=== PATIENT | male | born 1975 | race African-American/Black ===

== ENCOUNTER 2020-09-02 17:34 | Inpatient (IN) ==
[2020-09-02] MEDS ORDERED: SODIUM CHLORIDE 0.9% 1,000 ML IV STA (19:41)
[2020-09-02] MEDS ORDERED: ACETAMINOPHEN 500 MG TABLET PO STA (19:41)
[2020-09-02 20:20] LABS: Basophils % 0.5 % (0.0-0.8); Hematocrit 44.8 VOL% (42.0-52.0); Hemoglobin 14.7 GM/DL (14.0-18.0); Immature Granulocytes % 0.5 %; Immature Granulocytes Absolute 0.03 #; Lymphocytes # 0.8 10*3/uL (1.4-4.0); Lymphocytes % 14.7 % (21.2-54.2); Mean Corpuscular HGB Conc 32.8 GM/DL (32-36); Mean Platelet Volume 12.6 FL (9.6-12.0); Monocytes % 3.9 % (1.7-12.7); Neutrophils % 80.4 % (38.7-73.9); Platelet Count 117 T/CUMM (130-400); Red Blood Count 4.87 MC/CUMM (3.8-5.5); Red Cell Distribution Width 12.4 % (9.3-17.3); White Blood Count 5.6 T/CUMM (4-12)
[2020-09-02 20:38] LABS: Bilirubin,Total 0.5 MG/DL (0.2-1.0); Calcium 8.6 MG/DL (8.5-10.1); Ferritin 273.7 ng/ml (26-388); Osmolality,Calculated 261.7 MOS/KG (273-304); Total Protein 8.1 G/DL (6.4-8.3)
[2020-09-02 20:44] LABS: Hypochromasia 2+; Platelet Estimate Increased
[2020-09-02] MEDS ORDERED: DEXTROSE 50% 25 GM/50 ML VIAL IV PRN (21:27)
[2020-09-02] MEDS ORDERED: hydrALAZINE 20 MG/1 ML VIAL IV PRN (21:27)
[2020-09-02] MEDS ORDERED: SIMETHICONE CHEW 125 MG TABLET PO PRN (21:27)
[2020-09-02] MEDS ORDERED: ZALEPLON 5 MG CAPSULE PO PRN (21:27)
[2020-09-02] MEDS ORDERED: GLUCAGON 1 MG VIAL IM PRN (21:27)
[2020-09-02] MEDS ORDERED: diphenhydrAMINE CAP 25 MG CAPSULE PO PRN (21:27)
[2020-09-02] MEDS ORDERED: NICOTINE 21 MG/24 HR PATCH TRANSDERM PRN (21:27)
[2020-09-02] MEDS ORDERED: CALCIUM CARBONATE CHEW 500 MG TABLET PO PRN (21:27)
[2020-09-02] MEDS ORDERED: ALBUTEROL INHALER 18 GM INH PRN (22:23)
[2020-09-03] MEDS: LEVOFLOXACIN INJ 750 MG in PREMIX 1 EACH IV SCH ×2 (00:51→23:45)
[2020-09-03] MEDS: SODIUM CHLORIDE 0.9% 1,000 ML IV SCH ×2 (00:51→11:30)
[2020-09-03] MEDS ORDERED: VANCOMYCIN INJ 1,250 MG in SODIUM CHLORIDE 0.9% 250 ML IV SCH (02:00)
[2020-09-03] MEDS: ALBUTEROL INHALER 18 GM INH SCH ×7 (03:48→23:45)
[2020-09-03] MEDS: guaiFENesin/DM ER 600-30 MG TABLET PO PRN ×2 (03:55→20:58)
[2020-09-03 06:36] LABS: Basophils % 0.3 % (0.0-0.8); Hematocrit 40.4 VOL% (42.0-52.0); Hemoglobin 13.3 GM/DL (14.0-18.0); Immature Granulocytes % 0.2 %; Immature Granulocytes Absolute 0.01 #; Lymphocytes # 1.1 10*3/uL (1.4-4.0); Lymphocytes % 17.6 % (21.2-54.2); Mean Corpuscular HGB Conc 32.9 GM/DL (32-36); Mean Corpuscular Volume 92.7 FL (87-102); Mean Platelet Volume 12.1 FL (9.6-12.0); Monocytes % 4.9 % (1.7-12.7); Platelet Count 116 T/CUMM (130-400); Red Blood Count 4.36 MC/CUMM (3.8-5.5); Red Cell Distribution Width 12.6 % (9.3-17.3); White Blood Count 6.3 T/CUMM (4-12)
[2020-09-03 07:08] LABS: Calcium 8.2 MG/DL (8.5-10.1); Osmolality,Calculated 264.4 MOS/KG (273-304)
[2020-09-03 07:16] LABS: Anisocytosis Slight; Band Neutrophils 12 % (0-10); Lymphocytes 17 % (20-55); Macrocytosis Slight; Platelet Estimate Adequate; Segmented Neutrophils 67 % (50-85); Total Cells Counted 100
[2020-09-03] MEDS: ENOXAPARIN 40 MG/0.4 ML SYRINGE SUBCUT SCH (08:08)
[2020-09-03] MEDS: PANTOPRAZOLE 40 MG TABLET PO SCH (08:09)
[2020-09-03] MEDS: DEXAMETHASONE 10 MG/1 ML VIAL IV SCH (10:12)
[2020-09-03] MEDS ORDERED: SODIUM CHLORIDE 0.9% 1,000 ML IV PRN (11:23)
[2020-09-03] MEDS ORDERED: REMDESIVIR 200 MG in SODIUM CHLORIDE 0.9% 210 ML IV ONE (15:00)
[2020-09-04] MEDS: SODIUM CHLORIDE 0.9% 1,000 ML IV SCH ×3 (01:45→21:48)
[2020-09-04] MEDS: ALBUTEROL INHALER 18 GM INH SCH ×5 (03:34→19:59)
[2020-09-04 05:31] LABS: Basophils % 0.2 % (0.0-0.8); Hematocrit 40.1 VOL% (42.0-52.0); Immature Granulocytes % 0.5 %; Immature Granulocytes Absolute 0.02 #; Lymphocytes # 0.7 10*3/uL (1.4-4.0); Lymphocytes % 16.4 % (21.2-54.2); Mean Corpuscular HGB Conc 32.4 GM/DL (32-36); Mean Corpuscular Volume 94.1 FL (87-102); Mean Platelet Volume 12.4 FL (9.6-12.0); Monocytes % 8.7 % (1.7-12.7); Neutrophils % 74.2 % (38.7-73.9); Platelet Count 130 T/CUMM (130-400); Red Blood Count 4.26 MC/CUMM (3.8-5.5); Red Cell Distribution Width 12.8 % (9.3-17.3)
[2020-09-04 06:47] LABS: Calcium 8.3 MG/DL (8.5-10.1); Ferritin 315.8 ng/ml (26-388)
[2020-09-04] MEDS: ONDANSETRON 4 MG/2 ML VIAL IV PRN ×2 (10:09→21:48)
[2020-09-04] MEDS: DEXAMETHASONE 10 MG/1 ML VIAL IV SCH (10:09)
[2020-09-04] MEDS: ENOXAPARIN 40 MG/0.4 ML SYRINGE SUBCUT SCH (10:10)
[2020-09-04] MEDS: PANTOPRAZOLE 40 MG TABLET PO SCH (10:10)
[2020-09-04] MEDS: REMDESIVIR 100 MG in SODIUM CHLORIDE 0.9% 230 ML IV SCH (10:42)
[2020-09-04] MEDS: guaiFENesin/DM ER 600-30 MG TABLET PO PRN (21:48)
[2020-09-05] MEDS: ALBUTEROL INHALER 18 GM INH SCH ×7 (00:03→18:26)
[2020-09-05] MEDS: SODIUM CHLORIDE 0.9% 1,000 ML IV SCH ×2 (02:52→17:39)
[2020-09-05 05:40] LABS: Basophils % 0.2 % (0.0-0.8); Hematocrit 41.9 VOL% (42.0-52.0); Hemoglobin 13.4 GM/DL (14.0-18.0); Immature Granulocytes % 0.6 %; Immature Granulocytes Absolute 0.03 #; Lymphocytes # 0.8 10*3/uL (1.4-4.0); Lymphocytes % 14.3 % (21.2-54.2); Mean Corpuscular Volume 94.2 FL (87-102); Mean Platelet Volume 12.5 FL (9.6-12.0); Monocytes % 11.1 % (1.7-12.7); Neutrophils % 73.8 % (38.7-73.9); Platelet Count 172 T/CUMM (130-400); Red Blood Count 4.45 MC/CUMM (3.8-5.5); Red Cell Distribution Width 12.9 % (9.3-17.3); White Blood Count 5.4 T/CUMM (4-12)
[2020-09-05 06:04] LABS: Calcium 8.5 MG/DL (8.5-10.1); Ferritin 390.4 ng/ml (26-388); Osmolality,Calculated 276.7 MOS/KG (273-304)
[2020-09-05] MEDS: ONDANSETRON 4 MG/2 ML VIAL IV PRN (07:05)
[2020-09-05] MEDS: REMDESIVIR 100 MG in SODIUM CHLORIDE 0.9% 230 ML IV SCH (09:43)
[2020-09-05] MEDS: DEXAMETHASONE 10 MG/1 ML VIAL IV SCH (09:44)
[2020-09-05] MEDS: ENOXAPARIN 40 MG/0.4 ML SYRINGE SUBCUT SCH (09:44)
[2020-09-05] MEDS: PANTOPRAZOLE 40 MG TABLET PO SCH (09:45)
[2020-09-05] MEDS: BISACODYL 5 MG TABLET PO PRN (09:59)
[2020-09-06] MEDS: SODIUM CHLORIDE 0.9% 1,000 ML IV SCH ×4 (01:56→21:00)
[2020-09-06] MEDS: ALBUTEROL INHALER 18 GM INH SCH ×6 (03:18→18:12)
[2020-09-06 06:28] LABS: Hematocrit 39.9 VOL% (42.0-52.0); Hemoglobin 13.2 GM/DL (14.0-18.0); Immature Granulocytes % 0.4 %; Immature Granulocytes Absolute 0.02 #; Lymphocytes # 0.8 10*3/uL (1.4-4.0); Lymphocytes % 15.1 % (21.2-54.2); Mean Corpuscular HGB Conc 33.1 GM/DL (32-36); Mean Platelet Volume 11.9 FL (9.6-12.0); Monocytes % 11.1 % (1.7-12.7); Neutrophils % 73.4 % (38.7-73.9); Platelet Count 205 T/CUMM (130-400); Red Blood Count 4.29 MC/CUMM (3.8-5.5); Red Cell Distribution Width 12.7 % (9.3-17.3); White Blood Count 5.2 T/CUMM (4-12)
[2020-09-06 06:55] LABS: Platelet Estimate Adequate
[2020-09-06 06:57] LABS: Calcium 8.4 MG/DL (8.5-10.1); Osmolality,Calculated 275.7 MOS/KG (273-304)
[2020-09-06] MEDS: DEXAMETHASONE 10 MG/1 ML VIAL IV SCH (08:53)
[2020-09-06] MEDS: PANTOPRAZOLE 40 MG TABLET PO SCH (08:54)
[2020-09-06] MEDS: ENOXAPARIN 40 MG/0.4 ML SYRINGE SUBCUT SCH (08:54)
[2020-09-06] MEDS: REMDESIVIR 100 MG in SODIUM CHLORIDE 0.9% 230 ML IV SCH (09:59)
[2020-09-06] MEDS: ESCITALOPRAM 10 MG TABLET PO SCH (11:57)
[2020-09-06] MEDS: guaiFENesin/DM ER 600-30 MG TABLET PO PRN (11:57)
[2020-09-07] MEDS: ALBUTEROL INHALER 18 GM INH SCH ×6 (00:19→20:10)
[2020-09-07] MEDS: SODIUM CHLORIDE 0.9% 1,000 ML IV SCH (03:46)
[2020-09-07] MEDS: REMDESIVIR 100 MG in SODIUM CHLORIDE 0.9% 230 ML IV SCH (09:06)
[2020-09-07] MEDS: ENOXAPARIN 40 MG/0.4 ML SYRINGE SUBCUT SCH (09:06)
[2020-09-07] MEDS: PANTOPRAZOLE 40 MG TABLET PO SCH (09:07)
[2020-09-07] MEDS: ESCITALOPRAM 10 MG TABLET PO SCH (09:07)
[2020-09-07] MEDS: DEXAMETHASONE 10 MG/1 ML VIAL IV SCH (09:07)
[2020-09-07] MEDS: ACETAMINOPHEN 325 MG TABLET PO PRN ×2 (09:08→20:02)
[2020-09-07] MEDS: amLODIPine 2.5 MG TABLET PO SCH (12:09)
[2020-09-07] MEDS: guaiFENesin/DM ER 600-30 MG TABLET PO PRN (20:02)
[2020-09-08] MEDS: ALBUTEROL INHALER 18 GM INH SCH ×7 (00:05→22:26)
[2020-09-08] MEDS: BISACODYL 5 MG TABLET PO PRN (00:05)
[2020-09-08] MEDS: SODIUM CHLORIDE 0.9% 1,000 ML IV SCH ×4 (00:10→15:22)
[2020-09-08] MEDS: ONDANSETRON 4 MG/2 ML VIAL IV PRN ×3 (02:10→21:14)
[2020-09-08 06:10] LABS: Basophils % 0.2 % (0.0-0.8); Eosinophils # 0.1 10*3/uL (0.0-0.87); Eosinophils % 1.5 % (0.00-10.9); Hematocrit 41.4 VOL% (42.0-52.0); Hemoglobin 13.6 GM/DL (14.0-18.0); Immature Granulocytes % 0.7 %; Immature Granulocytes Absolute 0.04 #; Lymphocytes % 16.9 % (21.2-54.2); Mean Corpuscular HGB Conc 32.9 GM/DL (32-36); Mean Corpuscular Volume 92.2 FL (87-102); Monocytes % 21.2 % (1.7-12.7); Neutrophils % 59.5 % (38.7-73.9); Platelet Count 218 T/CUMM (130-400); Red Blood Count 4.49 MC/CUMM (3.8-5.5); Red Cell Distribution Width 12.2 % (9.3-17.3)
[2020-09-08 06:28] LABS: Calcium 8.5 MG/DL (8.5-10.1)
[2020-09-08 06:34] LABS: Eosinophils 2 % (0-10); Lymphocytes 15 % (20-55); Platelet Estimate Normal; Segmented Neutrophils 71 % (50-85)
[2020-09-08 06:35] LABS: Total Cells Counted 100
[2020-09-08] MEDS: ESCITALOPRAM 10 MG TABLET PO SCH (08:41)
[2020-09-08] MEDS: ENOXAPARIN 40 MG/0.4 ML SYRINGE SUBCUT SCH (08:41)
[2020-09-08] MEDS: amLODIPine 2.5 MG TABLET PO SCH (08:41)
[2020-09-08] MEDS: DEXAMETHASONE 10 MG/1 ML VIAL IV SCH (08:41)
[2020-09-08] MEDS: PANTOPRAZOLE 40 MG TABLET PO SCH (08:41)
[2020-09-08] MEDS ORDERED: SODIUM PHOSPHATE ENEMA 133 ML BOTTLE RECTAL ONE (10:30)
[2020-09-08] MEDS ORDERED: ceFAZolin 1,000 MG in SYRINGE 1 EACH IV ONE (13:18)
[2020-09-09] MEDS: SODIUM CHLORIDE 0.9% 1,000 ML IV SCH ×3 (01:37→20:10)
[2020-09-09] MEDS: ALBUTEROL INHALER 18 GM INH SCH ×6 (02:47→22:13)
[2020-09-09 05:06] LABS: Eosinophils # 0.1 10*3/uL (0.0-0.87); Eosinophils % 1.9 % (0.00-10.9); Hematocrit 41.8 VOL% (42.0-52.0); Hemoglobin 14.1 GM/DL (14.0-18.0); Immature Granulocytes % 0.7 %; Immature Granulocytes Absolute 0.04 #; Lymphocytes # 1.2 10*3/uL (1.4-4.0); Lymphocytes % 20.7 % (21.2-54.2); Mean Corpuscular HGB Conc 33.7 GM/DL (32-36); Mean Corpuscular Volume 90.5 FL (87-102); Mean Platelet Volume 11.3 FL (9.6-12.0); Monocytes % 20.2 % (1.7-12.7); Neutrophils % 56.5 % (38.7-73.9); Platelet Count 272 T/CUMM (130-400); Red Blood Count 4.62 MC/CUMM (3.8-5.5); Red Cell Distribution Width 12.2 % (9.3-17.3); White Blood Count 5.7 T/CUMM (4-12)
[2020-09-09 05:26] LABS: Eosinophils 4 % (0-10); Hypochromasia Slight; Lymphocytes 21 % (20-55); Platelet Estimate Adequate; Segmented Neutrophils 50 % (50-85); Total Cells Counted 100
[2020-09-09] MEDS: DEXAMETHASONE 10 MG/1 ML VIAL IV SCH (08:21)
[2020-09-09] MEDS: PANTOPRAZOLE 40 MG TABLET PO SCH (08:21)
[2020-09-09] MEDS: amLODIPine 2.5 MG TABLET PO SCH (08:21)
[2020-09-09] MEDS: ESCITALOPRAM 10 MG TABLET PO SCH (08:21)
[2020-09-09] MEDS ORDERED: MIDAZOLAM 2 MG/2 ML VIAL ONE (13:18)
[2020-09-09] MEDS ORDERED: fentaNYL 100 MCG/2 ML VIAL ONE (13:18)
[2020-09-09] MEDS ORDERED: LIDOCAINE 2% TOP JELLY 20 ML VIAL INTRAURETH ONE (14:18)
[2020-09-09] MEDS ORDERED: LIDOCAINE 2% 5 ML VIAL ONE (14:46)
[2020-09-09] MEDS ORDERED: PHENYLEPHRINE 1 MG/10 ML SYRINGE IV ONE (14:46)
[2020-09-09] MEDS ORDERED: propofoL 200 MG/20 ML VIAL IV ONE (14:46)
[2020-09-09] MEDS ORDERED: GLYCOPYRROLATE 0.4 MG/2 ML VIAL ONE (14:47)
[2020-09-09] MEDS: ACETAMINOPHEN 325 MG TABLET PO PRN (16:05)
[2020-09-09] MEDS ORDERED: MORPHINE 4 MG/1 ML VIAL IV ONE (20:15)
[2020-09-10] MEDS ORDERED: MORPHINE 4 MG/1 ML VIAL IV ONE (00:23)
[2020-09-10] MEDS: ALBUTEROL INHALER 18 GM INH SCH ×4 (03:13→15:24)
[2020-09-10] MEDS: SODIUM CHLORIDE 0.9% 1,000 ML IV SCH ×2 (06:30→14:08)
[2020-09-10 07:05] LABS: HIV Antigen/Antibody Result Nonreactive (Nonreactive)
[2020-09-10] MEDS: ESCITALOPRAM 10 MG TABLET PO SCH (08:28)
[2020-09-10] MEDS: DEXAMETHASONE 10 MG/1 ML VIAL IV SCH (08:28)
[2020-09-10] MEDS: amLODIPine 2.5 MG TABLET PO SCH (08:28)
[2020-09-10] MEDS: PANTOPRAZOLE 40 MG TABLET PO SCH (08:28)
[2020-09-10 15:49] VITALS: BP 122/86
== END 2020-09-10 17:36 | disposition home health service (06) | DRG 853 ==
LOC: N.ED 17:34 → N.EDINP 21:27 → SUATTDRO 21:27 → N.2E 09-03 02:00
PROVIDERS: ADMIT Emergency Medicine; ATTEND Internal Medicine